=== PATIENT | female | born 1950 | race Hispanic/Latino ===

== ENCOUNTER 2017-03-25 10:05 | Inpatient (IN) | payer SELFPAY ==
[~2017-03-25] VITALS: Ht 154.9 cm; Wt 87.3 kg
[2017-03-25 10:39] LABS: BASOPHILS % 0.6 % (0.0-1.0); EOSINOPHILS # (AUTO) 0.1 (0.0-0.4); EOSINOPHILS % 1.2 % (0.0-6.0); HEMATOCRIT 35.8 % (34.2-44.1); HEMOGLOBIN 11.5 g/dL (12.0-16.0); LYMPHOCYTES # (AUTO) 1.1 (1.0-3.2); LYMPHOCYTES % 14.7 % (18.0-39.1); MEAN CORPUSCULAR HEMOGLOBIN 27.5 pg (28-32); MEAN CORPUSCULAR HGB CONC 32.1 g/dL (31-35); MEAN CORPUSCULAR VOLUME 85.6 fL (81-99); MONOCYTES # (AUTO) 0.6 (0.2-0.8); MONOCYTES % 8.4 % (4.4-11.3); NEUTROPHILS # (AUTO) 5.4 (2.1-6.9); NEUTROPHILS % 74.3 % (38.7-80.0); PLATELET COUNT 338 x10e3/uL (140-360); RED BLOOD COUNT 4.18 x10e6/uL (3.6-5.1)
[2017-03-25 10:58] LABS: INR 0.8; PROTHROMBIN TIME 11.5 seconds (11.9-14.5)
[2017-03-25 10:59] LABS: PARTIAL THROMBOPLASTIN TIME 30.4 seconds (23.8-35.5)
[2017-03-25 11:10] LABS: ALANINE AMINOTRANSFERASE 163 IU/L (0-55); ALBUMIN 2.7 g/dL (3.5-5.0); ALBUMIN/GLOBULIN RATIO 0.6 (0.8-2.0); ALKALINE PHOSPHATASE 850 IU/L (40-150); AMYLASE 40 U/L (25-125); ANION GAP 12.8 mmol/L (8-16); BLOOD UREA NITROGEN 11 mg/dL (7-26); BUN/CREATININE RATIO 12 (6-25); CALCIUM 8.9 mg/dL (8.4-10.2); CARBON DIOXIDE 25 mmol/L (22-29); CHLORIDE 101 mmol/L (98-107); CREATININE, SERUM 0.91 mg/dL (0.57-1.11); EST GLOMERULAR FILTRATION RATE > 60 ML/MIN (60-); GLUCOSE 325 mg/dL (74-118); LIPASE 19 U/L (8-78); POTASSIUM 3.8 mmol/L (3.5-5.1); SODIUM 135 mmol/L (136-145)
[2017-03-25 11:54] LABS: BILIRUBIN,URINE 3+ (NEGATIVE); KETONES,URINE NEGATIVE (NEGATIVE); LEUKOCYTE ESTERASE ,URINE 2+ (NEGATIVE); NITRITE,URINE NEGATIVE (NEGATIVE); URINE UROBILINOGEN 8 mg/dL (0.2 - 1)
[2017-03-25 11:55] LABS: CLARITY,URINE CLOUDY (CLEAR); COLOR,URINE ORANGE (YELLOW); PROTEIN,URINE DIPSTICK 2+ (NEGATIVE)
[2017-03-25 11:59] LABS: BACTERIA,URINE MANY /HPF; EPITHELIAL CELLS,URINE FEW /LPF; WBC,URINE (MAN) 21-50 /HPF (0-5)
[2017-03-25 12:06] LABS: ALBUMIN 2.7 g/dL (3.5-5.0); BILIRUBIN,DIRECT 4.9 mg/dL (0.0-5.0)
[2017-03-25] MEDS ORDERED: SIMVASTATIN20 MG PO (13:14)
[2017-03-25] MEDS ORDERED: AMLODIPINE BESY10 MG PO (13:14)
[2017-03-25] MEDS ORDERED: [UNRECOGNIZED DRUG - OTHER] SC (13:15)
[2017-03-25] MEDS ORDERED: CARVEDILOL25 MG PO (13:15)
--- NOTE | 2017-03-25 14:00 | Diagnostic Imaging Report ---
PROCEDURE:GALLBLADDER ULTRASOUND COMPARISON:None. INDICATIONS:ABD PAIN. Elevated liver enzymes. FINDINGS: Liver: 11.9 cm in length. Diffuse intrahepatic biliary dilatation. Slight increase in the density with coarsened echotexture. No shadowing echogenic lesion in the right lobe measures 2.5 x 2.2 cm. Main portal vein: 0.95 cm Hepatopetal flow. Gallbladder: Multiple small shadowing calculi within the gallbladder lumen. Wall: 0.36 cm, slightly thickened. Common Bile Duct: 1.6 cm in diameter and dilated. No echogenic filling defect. Sonographic Adame's sign: <Negative. Right kidney: 9.7 cm in length. No solid or cystic mass, echogenic calculi, or hydronephrosis. Normal parenchymal echogenicity. Pancreas: The visualized portions of the pancreas are normal. Inferior vena cava: Normal. Aorta: Normal. Ascites: None. CONCLUSION: 1. Cholelithiasis. Diffuse intrahepatic biliary dilatation, and mild to moderate dilatation of the common bile duct may reflect old cholelithiasis. 2. 2.5 cm echogenic lesion in right hepatic lobe is indeterminate, possibly a hemangioma. Recommend MRI of abdomen without and with contrast with MRCP for further evaluation of above findings. Shadi Holt M.D. Dictated by: Shadi Holt M.D. on 03/25/2017 at 14:09 Electronically approved by: Shadi Holt M.D. on 03/25/2017 at 14:09
[2017-03-25] MEDS ORDERED: ONDANSETRON HCL INJ 2 MG/ML VIAL IV PRN (17:45)
[2017-03-25] MEDS ORDERED: CIPROFLOXACIN 400 MG/D5W 200ML 200 ML IV SCH (17:45)
[2017-03-25] MEDS ORDERED: MORPHINE SULFATE 2 MG/ML SYR IV PRN (17:45)
[2017-03-25] MEDS ORDERED: MORPHINE SULFATE 4 MG/ML SYR IV PRN (18:00)
[2017-03-25] MEDS: LEVOFLOXACIN 500MG/D5W 100ML 100 ML IV SCH (18:07)
[2017-03-25] MEDS: SODIUM CHLORIDE 0.9% 1000ML 1,000 ML IV SCH (18:07)
[2017-03-25] MEDS: METRONIDAZOLE 500MG/NS 100ML 100 ML IV SCH (20:21)
[2017-03-25] MEDS ORDERED: POTASSIUM CHLORIDE 20MEQ/100ML 100 ML IV ONE (21:00)
--- NOTE | 2017-03-25 21:39 | Consultation ---
DATE OF CONSULTATION: March 25, 2017 REFERRING PHYSICIAN: Dr. Keith Coello REASON FOR CONSULTATION: 1. Progressive anorexia for the last 2 weeks. 2. Jaundice x2 weeks. HISTORY OF PRESENT ILLNESS: A 66-year-old, very pleasant female who speaks fluent Peruvian. She is a patient of Dr. Nick Segundo. The patient has a history of hypertension, hyperlipidemia. She has not been easting for the last couple of weeks. Her appetite is slowly going down. She also noticed yellowish discoloration of her eyes as well as her skin. The patient was supposed to see Dr. Segundo in his office, however, when she reported all of these complaints Dr. Segundo's learning support assistant advised her to come to the emergency room. Here she reports no fever. Hemodynamically, vital signs are stable. Blood work revealed significantly deranged liver test with AST 129, ALT 163, alkaline phosphatase 850 and total bilirubin 6.9. Ultrasound of the abdomen showed multiple gallstones without any gallbladder wall thickening, no pericholecystic fluid collection. Common bile duct dilated to 16 mm without any echogenic filling defect. A 2.5 cm echogenic lesion in the right hepatic lobe, indeterminate, possibly hemangioma. The patient categorically denies any abdominal pain. She reports no weight loss. REVIEW OF SYSTEMS: A 12-point system reviewed, symptomatology is limited to GI system. PAST MEDICAL HISTORY: Hypertension, hyperlipidemia. PAST SURGICAL HISTORY: x2. FAMILY HISTORY: Noncontributory. Negative for any GI or [employer] malignancies. SOCIAL HISTORY: No smoking, alcohol or any illicit drug use. ALLERGIES: NONE. HOME MEDICATIONS: Amlodipine, Carvedilol, simvastatin. INPATIENT MEDICATION: reviewed per [facility] PHYSICAL EXAMINATION VITAL SIGNS: Temperature 98.1, pulse 68, respirations 18, blood pressure 152/72, oxygen saturation 100% on room air. GENERAL: Gross pallor, not in any acute distress. HEENT: Moist mucous membranes. Bilateral icteric sclerae. Oral mucosa is moist. No oral lesions. CV: S1 and S2 regular. LUNGS: Bilaterally grossly clear. ABDOMEN: Soft, nondistended. No palpable right upper quadrant tenderness. Adame's sign is negative. No palpable mass or hernia. Positive bowel sounds. EXTREMITIES: Warm. No leg edema. LABORATORY DATA: Sodium 135, potassium 3.8, chloride 101, bicarb 25, BUN 11, creatinine 0.91, glucose 325. Liver test showed albumin 2.7, total bilirubin has gone to 6.9 from 6.9, AST is down to 129 from 131, ALT down to 163 from 163, alkaline phosphatase 850 from 848. WBC 7.23, hemoglobin 11.5, hematocrit 35.8 and MCV 85.6, platelet count 338,000. Urinalysis: WBC 21-50 per high power field, leukocyte esterase 2+ and nitrites negative. Ultrasound of the abdomen showed cholelithiasis, diffuse intrahepatic biliary dilatation and mild to moderate dilatation of the common bile duct may reflect possibility of common bile duct stone. A 2.5 cm echogenic lesion in the right hepatic lobe is indeterminate, possibly a hemangioma. Recommend MRI of her abdomen without and with contrast with MRCP for further evaluation of the above findings. IMPRESSION: 1. Obstructive jaundice that is causing the symptoms of progressive anorexia. This is likely due to retained common bile duct stone. The patient also has cholelithiasis. Doubt radiographic or clinical signs of acute cholecystitis. 2. Urinary tract infection. PLAN: Agree to continue IV fluids, intravenous antibiotics. The patient has been started on levofloxacin as well as metronidazole. The patient does not display any signs or symptoms of ascending cholangitis. White count is normal. Surgery has also been consulted. Will do urgent MRI/MRCP for further road map of hepatobiliary system. Will keep him n.p.o. MRCP is likely going to be positive. Therefore, the patient will get ERCP. I had a detailed discussion with the patient in the presence of her family. I george a picture on the board, discussed the risks, benefits and alternatives of ERCP in laymen terms. The patient and her family verbalized full understanding. The risks included, but not limited to, perforation, bleeding, infection as well as pancreatitis. The patient agrees to proceed with the ERCP. I thank Dr. Coello for allowing me to participate in the care of this patient. Job#: [id number]
[2017-03-26] MEDS: SODIUM CHLORIDE 0.9% 1000ML 1,000 ML IV SCH ×4 (05:00→18:34)
[2017-03-26 05:42] LABS: BASOPHILS % 0.5 % (0.0-1.0); EOSINOPHILS # (AUTO) 0.1 (0.0-0.4); EOSINOPHILS % 1.9 % (0.0-6.0); HEMATOCRIT 32.8 % (34.2-44.1); HEMOGLOBIN 10.9 g/dL (12.0-16.0); LYMPHOCYTES # (AUTO) 1.1 (1.0-3.2); LYMPHOCYTES % 17.9 % (18.0-39.1); MEAN CORPUSCULAR HEMOGLOBIN 27.9 pg (28-32); MEAN CORPUSCULAR HGB CONC 33.2 g/dL (31-35); MEAN CORPUSCULAR VOLUME 84.1 fL (81-99); MONOCYTES # (AUTO) 0.6 (0.2-0.8); MONOCYTES % 9.8 % (4.4-11.3); NEUTROPHILS # (AUTO) 4.3 (2.1-6.9); NEUTROPHILS % 69.4 % (38.7-80.0); PLATELET COUNT 295 x10e3/uL (140-360); RED CELL DISTRIBUTION WIDTH 16.3 % (11.7-14.4)
[2017-03-26 06:05] LABS: ALANINE AMINOTRANSFERASE 129 IU/L (0-55); ALBUMIN 2.2 g/dL (3.5-5.0); ALBUMIN/GLOBULIN RATIO 0.5 (0.8-2.0); ALKALINE PHOSPHATASE 769 IU/L (40-150); ANION GAP 12.5 mmol/L (8-16); BLOOD UREA NITROGEN 8 mg/dL (7-26); BUN/CREATININE RATIO 11 (6-25); CALCIUM 8.5 mg/dL (8.4-10.2); CARBON DIOXIDE 23 mmol/L (22-29); CHLORIDE 106 mmol/L (98-107); CREATININE, SERUM 0.74 mg/dL (0.57-1.11); EST GLOMERULAR FILTRATION RATE > 60 ML/MIN (60-); GLUCOSE 154 mg/dL (74-118); POTASSIUM 3.5 mmol/L (3.5-5.1); SODIUM 138 mmol/L (136-145)
[2017-03-26] MEDS: METRONIDAZOLE 500MG/NS 100ML 100 ML IV SCH ×2 (06:47→18:34)
--- NOTE | 2017-03-26 07:28 | History and Physical ---
Patient comes in with jaundice. HISTORY OF PRESENT ILLNESS: A 66-year-old lady with a history of hypertension, hyperlipidemia and diabetes, who was in her usual state of health until the day prior to admission. Patient came to the office and labs were done. The labs showed elevated liver enzymes with elevated bilirubin. The patient noticed jaundice and sent to the emergency room for further evaluation of the biliary system. PAST MEDICAL HISTORY: History of hypertension, history of hyperlipidemia and history of diabetes. MEDICATIONS: That she takes at home are: 1. Amlodipine 10 mg daily. 2. Carvedilol 25 mg twice a day. 3. Simvastatin 20 mg. 4. Toujeo 20 units at nighttime. SURGICAL HISTORY: Noncontributory. FAMILY HISTORY: History of diabetes in the family and hypertension in the family. REVIEW OF SYSTEMS: Negative for chest pain. Positive for some nausea. No vomiting. No diarrhea. No constipation. No rectal bleeding. No hematochezia. No hematemesis. PHYSICAL EXAMINATION VITALS: Temperature is 98, blood pressure 154/77, pulse 80, respirations 18. HEENT: Normocephalic and atraumatic. Positive for icterus. CV: S1 and S2 normal. Regular rate and rhythm. ABDOMEN: Nondistended. Tender in the epigastric area. EXTREMITIES: No clubbing. No cyanosis. No edema. LABORATORY VALUES: Initial white count was 7.23, hemoglobin 11.5, hematocrit 35.8, RDW 16. Chemistry shows a sodium of 135, BUN 11, creatinine 0.91, glucose 325, total bili 6.9, AST 129 and 163 for ALT, and alk phos was 850. Amylase 40 and lipase 19. MICROBIOLOGY: Urinalysis culture is pending. IMAGING STUDIES: We did an initial ultrasound of the gallbladder, which shows cholelithiasis, diffuse intrahepatic biliary dilatation, and also a 2.5-cm lesion in the right lobe. ASSESSMENT: Biliary obstruction. Magnetic resonance cholangiopancreatography has been ordered for the patient. Will go ahead and treat that to see the biliary tree. Consulted Dr. Dickson and Dr. Loyd Retana was done. Patient will need a cholecystectomy depending on magnetic resonance cholangiopancreatography results. For right now, will keep the patient on antibiotics of Levaquin and Flagyl that has been started. Will control her blood pressures. Further recommendation per clinical course. Will continue to monitor the patient along with the consultants. Job#: [id number] CLARISSA
[2017-03-26 08:02] VITALS: BP 154/66
[2017-03-26] MEDS ORDERED: GADOBENATE DIMEGLUMINE 1 ML IV ONE (08:42)
[2017-03-26] MEDS ORDERED: IOPAMIDOL 610MG/1ML 300 MG/ML VIAL IV ONE ×2 (12:00→16:50)
[2017-03-26] MEDS ORDERED: LOPRESSOR5 MG/5 ML IV (12:17)
[2017-03-26 13:10] VITALS: BP 166/72
[2017-03-26 14:10] VITALS: BP 166/72
[2017-03-26] MEDS ORDERED: PROPOFOL IV EMULSION 10 MG/ML 20 ML VIAL ONE (14:42)
[2017-03-26 16:33] VITALS: BP 184/81
[2017-03-26] MEDS ORDERED: FENTANYL CITRATE/PF 100MCG/2 ML INJ ONE (18:41)
[2017-03-26] MEDS ORDERED: MIDAZOLAM HCL 2 MG/2 ML VIAL ONE (18:41)
--- NOTE | 2017-03-26 18:45 | Diagnostic Imaging Report ---
PROCEDURE:ERCP TO BE READ TECHNIQUE:Multiple images from an ERCP are submitted for interpretation. The procedure was performed by the GI service. No radiologist was present for the procedure. INDICATION:Biliary stricture. COMPARISON:MRCP of the abdomen from the same day FINDINGS: Initial ERCP images demonstrate a stricture in the common hepatic duct with proximal intrahepatic biliary ductal dilatation involving the right and left intrahepatic ducts. A wire is passed across the stricture and a plastic biliary stent is placed. Total fluoroscopy time was 2 minutes, 9 seconds CONCLUSION: As above. Dictated by: Noble Dudley M.D. on 03/26/2017 at 18:54 Electronically approved by: Noble Dudley M.D. on 03/26/2017 at 18:54
[2017-03-26 20:00] VITALS: BP 130/61
[2017-03-26 20:15] VITALS: BP 130/61
[2017-03-26] MEDS: LEVOFLOXACIN 500MG/D5W 100ML 100 ML IV SCH (21:35)
[2017-03-27] VITALS (9 sets, daily range): BP systolic 128–187; BP diastolic 65–78
[2017-03-27] MEDS: METRONIDAZOLE 500MG/NS 100ML 100 ML IV SCH ×2 (05:50→16:56)
[2017-03-27 07:10] LABS: BASOPHILS % 0.3 % (0.0-1.0); EOSINOPHILS % 0.1 % (0.0-6.0); HEMATOCRIT 30.7 % (34.2-44.1); LYMPHOCYTES # (AUTO) 0.8 (1.0-3.2); LYMPHOCYTES % 7.7 % (18.0-39.1); MEAN CORPUSCULAR HEMOGLOBIN 27.6 pg (28-32); MEAN CORPUSCULAR HGB CONC 32.6 g/dL (31-35); MEAN CORPUSCULAR VOLUME 84.8 fL (81-99); MONOCYTES # (AUTO) 0.7 (0.2-0.8); MONOCYTES % 6.4 % (4.4-11.3); NEUTROPHILS # (AUTO) 9.2 (2.1-6.9); NEUTROPHILS % 84.9 % (38.7-80.0); PLATELET COUNT 310 x10e3/uL (140-360); RED BLOOD COUNT 3.62 x10e6/uL (3.6-5.1)
[2017-03-27 07:46] LABS: ALBUMIN 2.2 g/dL (3.5-5.0); ALBUMIN/GLOBULIN RATIO 0.6 (0.8-2.0); ANION GAP 16.8 mmol/L (8-16); CALCIUM 8.4 mg/dL (8.4-10.2); CREATININE, SERUM 0.93 mg/dL (0.57-1.11); POTASSIUM 3.8 mmol/L (3.5-5.1)
[2017-03-27] MEDS: SODIUM CHLORIDE 0.9% 1000ML 1,000 ML IV SCH ×2 (07:50→18:23)
[2017-03-27] MEDS ORDERED: DEXTROSE 50% SYRINGE 50 ML IV PRN (12:00)
[2017-03-27] MEDS: INSULIN LISPRO 100 UNIT/1 ML 3ML VIAL SQ SCH ×3 (12:14→20:59)
[2017-03-27] MEDS: CLONIDINE HCL 0.1 MG TAB PO PRN (18:23)
[2017-03-27] MEDS: LEVOFLOXACIN 500MG/D5W 100ML 100 ML IV SCH (18:23)
[2017-03-28] VITALS (9 sets, daily range): BP systolic 149–184; BP diastolic 69–84
[2017-03-28] MEDS: METRONIDAZOLE 500MG/NS 100ML 100 ML IV SCH ×2 (05:26→17:02)
[2017-03-28] MEDS: SODIUM CHLORIDE 0.9% 1000ML 1,000 ML IV SCH ×3 (05:26→23:16)
[2017-03-28 07:51] LABS: BASOPHILS % 0.3 % (0.0-1.0); EOSINOPHILS # (AUTO) 0.1 (0.0-0.4); EOSINOPHILS % 0.8 % (0.0-6.0); HEMATOCRIT 28.5 % (34.2-44.1); HEMOGLOBIN 9.3 g/dL (12.0-16.0); LYMPHOCYTES # (AUTO) 1.5 (1.0-3.2); LYMPHOCYTES % 16.5 % (18.0-39.1); MEAN CORPUSCULAR HEMOGLOBIN 27.6 pg (28-32); MEAN CORPUSCULAR HGB CONC 32.6 g/dL (31-35); MEAN CORPUSCULAR VOLUME 84.6 fL (81-99); MONOCYTES # (AUTO) 0.9 (0.2-0.8); NEUTROPHILS # (AUTO) 6.3 (2.1-6.9); NEUTROPHILS % 70.3 % (38.7-80.0); PLATELET COUNT 261 x10e3/uL (140-360); RED BLOOD COUNT 3.37 x10e6/uL (3.6-5.1); RED CELL DISTRIBUTION WIDTH 16.8 % (11.7-14.4)
[2017-03-28 08:17] LABS: ALANINE AMINOTRANSFERASE 85 IU/L (0-55); ALBUMIN 2.1 g/dL (3.5-5.0); ALBUMIN/GLOBULIN RATIO 0.6 (0.8-2.0); ALKALINE PHOSPHATASE 605 IU/L (40-150); ANION GAP 12.2 mmol/L (8-16); BILIRUBIN,DIRECT 4.5 mg/dL (0.0-5.0); BLOOD UREA NITROGEN 11 mg/dL (7-26); BUN/CREATININE RATIO 14 (6-25); CALCIUM 8.1 mg/dL (8.4-10.2); CARBON DIOXIDE 21 mmol/L (22-29); CHLORIDE 105 mmol/L (98-107); CREATININE, SERUM 0.77 mg/dL (0.57-1.11); EST GLOMERULAR FILTRATION RATE > 60 ML/MIN (60-); GLUCOSE 247 mg/dL (74-118); POTASSIUM 3.2 mmol/L (3.5-5.1); SODIUM 135 mmol/L (136-145)
[2017-03-28] MEDS: INSULIN LISPRO 100 UNIT/1 ML 3ML VIAL SQ SCH ×4 (08:25→21:36)
[2017-03-28 12:25] LABS: BAND NEUTROPHILS % (MANUAL) 2 %; EOSINOPHILS % (MANUAL) 1 % (0-7); LYMPHOCYTES % (MANUAL) 17 % (19-48); MONOCYTES % (MANUAL) 4 % (3.4-9.0); NEUTROPHILS % (MANUAL) 76 % (40-74); PLATELET ESTIMATE ADEQUATE; PLATELET MORPHOLOGY COMMENT NORMAL; RBC MORPHOLOGY COMMENT NORMAL
[2017-03-28] MEDS ORDERED: IOPAMIDOL 370 MG/ML 200 ML INFUS..BTL INJ ONE (14:55)
[2017-03-28] MEDS ORDERED: SODIUM CHLORIDE 0.9% 50ML 50 ML ONE (14:55)
--- NOTE | 2017-03-28 15:28 | Diagnostic Imaging Report ---
EXAMINATION: CT of the chest, abdomen and pelvis without and with contrast. TECHNIQUE: Helical CT images of the chest, abdomen and pelvis were performed from the lung apices to the lesser trochanters after the intravenous administration of 100 cc of Isovue 300 and the oral administration of none. Coronal and sagittal reformatted images were obtained. Liver protocol COMPARISON: Ultrasound and MRCP CLINICAL HISTORY:Cholangiocarcinoma DISCUSSION: CHEST: LINES/TUBES: None. LUNGS AND AIRWAYS: 2 mm right upper lobe pulmonary nodule image 26. 2 mm left upper lobe nodule image 28 and 25. Minimal basilar atelectasis. PLEURA: Small effusions. HEART AND MEDIASTINUM: Thyroid gland normal. Pericardial effusion prominent heart size. Minimal coronary artery calcifications. LYMPH NODES: No significant mediastinal, hilar or axillary lymphadenopathy is seen. BONES AND SOFT TISSUES: No bony destructive lesions. No soft tissue abnormalities. ABDOMEN/PELVIS: HEPATOBILIARY:Perihilar tumor involving the confluence and probably the right and left hepatic ducts resulting in severe ductal dilatation. Discrete measurement of the mass is limited. Pneumobilia related to the prior intervention. The hepatic artery anatomy is standard. The right hepatic lobe a 2.4 cm nodule with peripheral nodular enhancement which fills in with delayed imaging likely incidental hemangioma. Cholelithiasis with probable sludge. A common bile duct stent extends from the hilum proximally and distally to within the duodenum. SPLEEN: No splenomegaly. PANCREAS: No focal masses or ductal dilatation. ADRENALS: No adrenal nodules. KIDNEYS/URETERS: No hydronephrosis. Left renal cyst. PELVIC ORGANS/BLADDER: The bladder is normal. PERITONEUM/RETROPERITONEUM: No free air or fluid. LYMPH NODES: No intra-abdominal,retroperitoneal, pelvic or inguinal lymphadenopathy. VESSELS: Mild vascular calcifications. No obstruction. IVC filter. GI TRACT: Colonic diverticulosis without inflammatory change. BONES AND SOFT TISSUES: Bone demineralization. Lower lumbar spondylosis. 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 Common bile duct stent in place. Cholelithiasis. Small scattered pulmonary nodules likely benign. Attention on follow-up. Pericardial effusion. Signed by: Dr. Heber Graham M.D. on 03/28/2017 3:24 PM
--- NOTE | 2017-03-28 15:57 | Progress Note ---
DATE: March 28, 2017 The patient is afebrile. No temperature spike. Vital signs are stable. She denies any fever, chills, abdominal pain, nausea or vomiting. She is tolerating oral intake well. Examination of the abdomen reveals a soft and nontender abdomen. Laboratory data reveals that the liver chemistries are trending down. Her white count is normal. The cholangio MRCP reveals a large tumor of the hepatic ductal bifurcation with extension into both right and left lobes of the liver. The patient on Wednesday underwent stenting of this obstruction. ASSESSMENT 1. 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 2. Patient has been stented. 3. At this point, there is no surgical emergency as the patient is not septic and afebrile with normal white count. RECOMMENDATION: Discharge the patient from a general surgery point of view and referral to the liver service of a tertiary care facility for further followup of this cholangiocarcinoma. At this point, we cannot offer her any nor does she need any surgical intervention at this time. Job#: [id number]
[2017-03-28] MEDS: LEVOFLOXACIN 500MG/D5W 100ML 100 ML IV SCH (18:05)
[2017-03-29] VITALS: BP 172/74
[2017-03-29 04:00] VITALS: BP 167/78
[2017-03-29] MEDS: SODIUM CHLORIDE 0.9% 1000ML 1,000 ML IV SCH (06:15)
[2017-03-29] MEDS: METRONIDAZOLE 500MG/NS 100ML 100 ML IV SCH (06:21)
[2017-03-29 07:28] LABS: ALANINE AMINOTRANSFERASE 94 IU/L (0-55); ALBUMIN 2.2 g/dL (3.5-5.0); ALBUMIN/GLOBULIN RATIO 0.5 (0.8-2.0); ALKALINE PHOSPHATASE 651 IU/L (40-150); ANION GAP 15.4 mmol/L (8-16); BLOOD UREA NITROGEN 7 mg/dL (7-26); BUN/CREATININE RATIO 10 (6-25); CALCIUM 8.5 mg/dL (8.4-10.2); CARBON DIOXIDE 23 mmol/L (22-29); CHLORIDE 100 mmol/L (98-107); CREATININE, SERUM 0.72 mg/dL (0.57-1.11); EST GLOMERULAR FILTRATION RATE > 60 ML/MIN (60-); GLUCOSE 198 mg/dL (74-118); POTASSIUM 3.4 mmol/L (3.5-5.1); SODIUM 135 mmol/L (136-145)
[2017-03-29 08:00] VITALS: BP 188/86
[2017-03-29] MEDS: INSULIN LISPRO 100 UNIT/1 ML 3ML VIAL SQ SCH ×3 (09:12→21:00)
[2017-03-29 12:00] VITALS: BP 178/83
[2017-03-29 16:00] VITALS: BP 170/81
[2017-03-29 20:00] VITALS: BP 171/81
[2017-03-29] MEDS: LEVOFLOXACIN 500MG/D5W 100ML 100 ML IV SCH (23:17)
[2017-03-30] VITALS: BP 175/73
[2017-03-30] MEDS: CLONIDINE HCL 0.1 MG TAB PO PRN ×2 (00:32→18:46)
[2017-03-30] MEDS: SODIUM CHLORIDE 0.9% 1000ML 1,000 ML IV SCH ×3 (02:15→22:15)
[2017-03-30 04:00] VITALS: BP 165/70
[2017-03-30] MEDS: METRONIDAZOLE 500MG/NS 100ML 100 ML IV SCH ×2 (05:11→18:21)
[2017-03-30 07:18] LABS: BASOPHILS % 0.4 % (0.0-1.0); EOSINOPHILS # (AUTO) 0.2 (0.0-0.4); EOSINOPHILS % 2.5 % (0.0-6.0); HEMATOCRIT 27.9 % (34.2-44.1); HEMOGLOBIN 9.2 g/dL (12.0-16.0); LYMPHOCYTES # (AUTO) 1.3 (1.0-3.2); LYMPHOCYTES % 18.9 % (18.0-39.1); MEAN CORPUSCULAR HEMOGLOBIN 27.6 pg (28-32); MEAN CORPUSCULAR VOLUME 83.8 fL (81-99); MONOCYTES # (AUTO) 0.7 (0.2-0.8); MONOCYTES % 10.1 % (4.4-11.3); NEUTROPHILS # (AUTO) 4.6 (2.1-6.9); NEUTROPHILS % 66.8 % (38.7-80.0); PLATELET COUNT 272 x10e3/uL (140-360); RED BLOOD COUNT 3.33 x10e6/uL (3.6-5.1)
[2017-03-30] MEDS: INSULIN LISPRO 100 UNIT/1 ML 3ML VIAL SQ SCH ×4 (07:30→21:00)
[2017-03-30 07:39] LABS: ALANINE AMINOTRANSFERASE 80 IU/L (0-55); ALBUMIN 1.8 g/dL (3.5-5.0); ALBUMIN/GLOBULIN RATIO 0.5 (0.8-2.0); ALKALINE PHOSPHATASE 594 IU/L (40-150); ANION GAP 13.2 mmol/L (8-16); BLOOD UREA NITROGEN 8 mg/dL (7-26); BUN/CREATININE RATIO 11 (6-25); CALCIUM 8.2 mg/dL (8.4-10.2); CARBON DIOXIDE 23 mmol/L (22-29); CHLORIDE 103 mmol/L (98-107); CREATININE, SERUM 0.72 mg/dL (0.57-1.11); EST GLOMERULAR FILTRATION RATE > 60 ML/MIN (60-); GLUCOSE 202 mg/dL (74-118); POTASSIUM 3.2 mmol/L (3.5-5.1); SODIUM 136 mmol/L (136-145)
[2017-03-30 07:54] VITALS: BP 190/84
[2017-03-30 12:32] VITALS: BP 169/75
[2017-03-30] MEDS ORDERED: IOPAMIDOL 610MG/1ML 300 MG/ML VIAL IV ONE (14:53)
[2017-03-30 17:57] VITALS: BP 193/88
[2017-03-30] MEDS ORDERED: MIDAZOLAM HCL 2 MG/2 ML VIAL ONE (19:07)
[2017-03-30] MEDS ORDERED: LIDOCAINE HCL 2% LOCAL INJ 5 ML SDV VIAL INJ ONE (19:07)
[2017-03-30] MEDS ORDERED: FENTANYL CITRATE/PF 100MCG/2 ML INJ ONE (19:07)
[2017-03-30] MEDS ORDERED: PROPOFOL IV EMULSION 10 MG/ML 20 ML VIAL ONE (19:07)
[2017-03-30] MEDS: LEVOFLOXACIN 500MG/D5W 100ML 100 ML IV SCH (19:46)
[2017-03-30 20:00] VITALS: BP 138/71
[2017-03-31] VITALS: BP 190/81
--- NOTE | 2017-03-31 00:54 | Operative Report ---
DATE OF PROCEDURE: March 30, 2017 PROCEDURE: Endoscopic retrograde cholangiopancreatography with stent exchange. PREPROCEDURE DIAGNOSIS: Obstructing jaundice secondary to mass at the hilum (Klatskin's tumor). She has had ERCP on March 26, 2016, found to have a stricture at the hilum which was dilated followed by 10 Czech x 9 cm stent placement. Patient's liver enzyme is still not improving. POSTPROCEDURE DIAGNOSES 1. Stricture at hilum, intrahepatic ductal dilatation. 2. Left hepatic ductal system dilated, but not very well visualized. 3. Right hepatic system dilated with stricture at the right common hepatic duct. The prior 10 Czech x 7 cm stent was removed with a snare. A new 10 Czech x 12 cm stent was placed in the right hepatic ductal system. 4. Prior sphincterotomy noted. RECOMMENDATIONS 1. Monitor liver enzymes. Allow oral feeds. Start clears and advance as tolerated. 2. If jaundice does not improve, then patient needs to be transferred to medical center for cholangioscopy and stent placement on the right as well as left hepatic ductal system. 3. Oncology service is following the patient. CONSENT: Procedure was explained to the patient in detail. Risks included; but not limited to perforation, bleeding, infection, sedation risks, therapeutic limitations, adverse medication reaction, need for surgery and life-threatening event, severe pancreatitis. Patient verbalized full understanding and consents. SEDATION: MAC. PROCEDURE: Patient was maintained in the semi-prone position. Bite block was secured. Time out was done. A fluoroscope was placed. The duodenoscope was introduced into the oropharynx and under direct visualization scope was advanced all the way up to the ampulla. Prior stent was grabbed with a snare and removed along with the scope. A part of the stent got broken and that was left inside the duodenal lumen. The ampulla was cannulated with a sphincterotome. A 0.035 wire was advanced. This wire kept going into the right hepatic ductal system. Cholangiogram was obtained. This showed a dilated intrahepatic duct, a small tight stricture at the right common hepatic duct. A sphincterotome was exchanged with a balloon catheter. Balloon was inflated in the mid common bile duct. Contrast was again injected. The exact bifurcation of right and left hepatic ductal system could not be localized despite maximum instillation of contrast. The balloon was advanced all the way into the right intrahepatic ductal system which was dilated. There is a small tight stricture noted at the right common hepatic duct. Multiple attempts were made to advance the wire in the left hepatic ductal system but failed. At this point of time, a 7-Czech x 12 cm single flap plastic biliary stent was placed in the right hepatic ductal system. The scope was completely withdrawn. Patient tolerated the procedure very well. The stomach was decompressed. DISPOSITION: Return the patient to the hospital [facility] for ongoing care. Job#: [id number]
[2017-03-31] MEDS: CLONIDINE HCL 0.1 MG TAB PO PRN (01:19)
[2017-03-31 04:00] VITALS: BP 184/86
[2017-03-31] MEDS: METRONIDAZOLE 500MG/NS 100ML 100 ML IV SCH ×2 (06:18→17:11)
[2017-03-31 07:15] LABS: ALBUMIN 2.2 g/dL (3.5-5.0); BILIRUBIN,DIRECT 3.3 mg/dL (0.0-5.0)
[2017-03-31] MEDS: INSULIN LISPRO 100 UNIT/1 ML 3ML VIAL SQ SCH ×3 (07:30→17:12)
[2017-03-31 08:06] VITALS: BP 150/67
[2017-03-31] MEDS: SODIUM CHLORIDE 0.9% 1000ML 1,000 ML IV SCH (08:12)
[2017-03-31 08:13] VITALS: BP 150/67
--- NOTE | 2017-03-31 08:59 | Diagnostic Imaging Report ---
PROCEDURE:ERCP TO BE READ INDICATION: COMPARISON:Patients [facility], CT, CT ABDOMEN/PELVIS WOW, 03/28/2017, 11:52. TECHNIQUE:ERCP fluoroscopy. Fluoroscopy time: 5 minutes 39 seconds. Cumulative air kerma: 251.97 mGy FINDINGS: An indwelling plastic CBD stent was removed. Retrograde opacification demonstrates severe intra-and extrahepatic bile duct dilation with a stricture in the expected region of the proper hepatic duct. Balloon sweeps were performed. There is nonopacification of the cystic duct. Plastic stent was reinserted. CONCLUSION: Severe intra-and extrahepatic bile duct dilation secondary to mass effect from perihilar tumor involving the biliary confluence/proper hepatic duct. Dictated by: Mode Santos M.D. on 03/31/2017 at 9:09 Electronically approved by: Mode Santos M.D. on 03/31/2017 at 9:09
[2017-03-31] MEDS ORDERED: CARVEDILOL 12.5 MG TAB PO SCH (09:00)
[2017-03-31] MEDS ORDERED: NON-FORMULARY MEDICATION (Carvedilol 25 MG) PO SCH (09:00)
[2017-03-31] MEDS ORDERED: AMLODIPINE BESYLATE 10 MG TAB PO SCH (09:00)
[2017-03-31 11:34] VITALS: BP 126/60
[2017-03-31 16:02] VITALS: BP 119/59
[2017-03-31] MEDS: LEVOFLOXACIN 500MG/D5W 100ML 100 ML IV SCH (18:13)
[2017-03-31] MEDS ORDERED: CIPRO500 MG PO ×2 (19:30→19:40)
[2017-03-31] MEDS ORDERED: SIMVASTATIN 20 MG TAB PO SCH (21:00)
== END 2017-03-31 19:56 | disposition home or self-care (01) | DRG 435 ==
LOC: ER 10:05 → ERHOLD 18:11 → MED/SURG 03-26 12:37
PROVIDERS: ADMIT Family Medicine; ATTEND Family Medicine
PROC: 0F798DZ Dilation of Common Bile Duct with Intraluminal Device, Via Natural or Artificial Opening Endoscopic (ICD-10-PCS; 2017-03-26)
PROC: BF101ZZ Fluoroscopy of Bile Ducts using Low Osmolar Contrast (ICD-10-PCS; 2017-03-26)
PROC: 0F998ZX Drainage of Common Bile Duct, Via Natural or Artificial Opening Endoscopic, Diagnostic (ICD-10-PCS; principal; 2017-03-26 14:35)
PROC: 0F798DZ Dilation of Common Bile Duct with Intraluminal Device, Via Natural or Artificial Opening Endoscopic (ICD-10-PCS; 2017-03-30)
PROC: 0FC98ZZ Extirpation of Matter from Common Bile Duct, Via Natural or Artificial Opening Endoscopic (ICD-10-PCS; 2017-03-30)
PROC: BF101ZZ Fluoroscopy of Bile Ducts using Low Osmolar Contrast (ICD-10-PCS; 2017-03-30)
DX: C24.8 Malignant neoplasm of overlapping sites of biliary tract (principal); K83.1 Obstruction of bile duct; N39.0 Urinary tract infection, site not specified; B96.20 Unspecified Escherichia coli [E. coli] as the cause of diseases classified elsewhere; I10 Essential (primary) hypertension; E11.9 Type 2 diabetes mellitus without complications; D63.8 Anemia in other chronic diseases classified elsewhere; D18.03 Hemangioma of intra-abdominal structures; K80.20 Calculus of gallbladder without cholecystitis without obstruction
CPT/HCPCS: 36415; 43274; 71260; 74178; 74183; 74328; 76705; 80053; 80076; 81001; 82150; 82948; 83690; 85025; 85610; 85730; 86301; 87086; 87186; 88104; 88112; 88305; 96365; 99284; J1956; J2001; J2250; J7030; Q9967